=== PATIENT | female | born 1965 | race Caucasian/White ===

== ENCOUNTER 2021-02-17 01:53 | Emergency (ER) | payer BC, OTHER ==
[~2021-02-17] VITALS: Ht 157.5 cm; Wt 63.0 kg
--- NOTE | 2021-02-17 03:20 | NUR ---
MANAGER ADMINISTRATION: PT. TO ROOM FROM LOBBY AT THIS TIME.
[2021-02-17] MEDS ORDERED: ACETAMINOPHEN 325 MG TABLET PO ONE (04:00)
[2021-02-17] MEDS ORDERED: ONDANSETRON 2MG/ML, 2ML IVPush ONE (04:00)
[2021-02-17] MEDS ORDERED: SODIUM CHLORIDE 0.9% 1,000ML IVBOLUS ONE (04:00)
[2021-02-17] MEDS ORDERED: SODIUM CHLORIDE FLUSH 10ML SYR IVF ONE (04:00)
[2021-02-17] MEDS ORDERED: KETOROLAC 30 MG/1 ML IVPush ONE (04:00)
[2021-02-17] MEDS ORDERED: NS + 20MEQ KCL 0 ML IV ONE (04:05)
[2021-02-17 04:14] LABS: BASOPHILS % (AUTO) 1 % (0-1); EOSINOPHILS % (AUTO) 1 % (1-7); LYMPHOCYTES % (AUTO) 40 % (22-44); MEAN CORPUSCULAR HEMOGLOBIN 33.5 pg (27.0-34.8); MEAN CORPUSCULAR HGB CONC 34.1 g/dL (32.4-35.8); MEAN PLATELET VOLUME 8.4 fL (7.4-10.4); MONOCYTES % (AUTO) 9 % (2-9); NEUTROPHILS % (AUTO) 50 % (42-75); PLATELET COUNT 210 x10^3/uL (130-400); RED BLOOD COUNT 4.85 x10^6/uL (3.82-5.3); RED CELL DISTRIBUTION WIDTH 12.5 % (9.6-15.2)
[2021-02-17 04:22] LABS: ALANINE AMINOTRANSFERASE 209 U/L (12-78); ALBUMIN 3.4 g/dL (3.4-5.0); ANION GAP 10 mmol/L (5-15); CALCIUM 8.2 mg/dL (8.5-10.1); CHLORIDE 106 mmol/L (98-107)
[2021-02-17] MEDS ORDERED: ONDANSETRON 2MG/ML, 2ML ONE (04:24)
[2021-02-17] MEDS ORDERED: ACETAMINOPHEN 325 MG TABLET ONE (04:24)
[2021-02-17] MEDS ORDERED: KETOROLAC 30 MG/1 ML ONE (04:24)
[2021-02-17 04:25] LABS: ALKALINE PHOSPHATASE 187 U/L (45-117); BILIRUBIN,TOTAL 0.7 mg/dL (0.2-1.0); CREATININE 0.89 mg/dL (0.55-1.02)
[2021-02-17 05:25] VITALS: BP 134/75
== END 2021-02-17 06:07 | disposition home or self-care (01) ==
LOC: ED 06:05
DX: B34.9 Viral infection, unspecified (principal); Z20.822 Contact with and (suspected) exposure to COVID-19; F17.210 Nicotine dependence, cigarettes, uncomplicated; R51.9 Headache, unspecified; R00.1 Bradycardia, unspecified; R74.8 Abnormal levels of other serum enzymes
CPT/HCPCS: 36415; 80053; 85025; 93005; 96361; 96374; 96375; 99284; 99406; J1885; J2405; J7030; U0003; U0005

== ENCOUNTER 2021-02-22 15:21 | Emergency (ER) | payer BC ==
[~2021-02-22] VITALS: Ht 162.6 cm; Wt 62.0 kg
[2021-02-22 16:25] LABS: ALANINE AMINOTRANSFERASE 122 U/L (12-78); ALBUMIN 3.6 g/dL (3.4-5.0); ANION GAP 6 mmol/L (5-15); CALCIUM 8.8 mg/dL (8.5-10.1); CHLORIDE 99 mmol/L (98-107); CREATININE 0.85 mg/dL (0.55-1.02)
[2021-02-22 16:27] LABS: ALKALINE PHOSPHATASE 194 U/L (45-117); BILIRUBIN,TOTAL 0.9 mg/dL (0.2-1.0); TOTAL PROTEIN 7.3 g/dL (6.4-8.2)
[2021-02-22 16:33] LABS: MEAN CORPUSCULAR HEMOGLOBIN 34.1 pg (27.0-34.8); MEAN CORPUSCULAR HGB CONC 34.7 g/dL (32.4-35.8); MEAN PLATELET VOLUME 9.5 fL (7.4-10.4); PLATELET COUNT 151 x10^3/uL (130-400); RED BLOOD COUNT 4.67 x10^6/uL (3.82-5.3); RED CELL DISTRIBUTION WIDTH 12.3 % (9.6-15.2)
[2021-02-22 17:01] LABS: <RBC MORPHOLOGY> NORMAL; LYMPH#(MANUAL) 2.42 x10^3/uL (1-3.4); LYMPHS% (MANUAL) 22 % (22-44); MONOS#(MANUAL) 0.55 x10^3/uL (0.3-2.7); MONOS% (MANUAL) 5 % (2-9); SEG#(MANUAL) 8.03 x10^3/uL (1.8-6.8); SEGS% (MANUAL) 73 % (42-75)
[2021-02-22 17:02] LABS: <PLATELET ESTIMATE> ADEQUATE; <PLT MORPHOLOGY> NORMAL PLT MORPH
--- NOTE | 2021-02-22 18:35 | NUR ---
PT BACK TO ROOM FROM LOBBY
[2021-02-22] MEDS ORDERED: MAALOX/HYOSCYAMINE/LIDOCAINE 45 ML BTL PO ONE (19:00)
[2021-02-22] MEDS ORDERED: ONDANSETRON 2MG/ML, 2ML ONE (19:00)
[2021-02-22] MEDS ORDERED: SODIUM CHLORIDE 0.9% 1,000ML IVBOLUS ONE (19:00)
[2021-02-22] MEDS ORDERED: MORPHINE SULFATE 4 MG/ML, 1ML IVPush PRN (19:00)
[2021-02-22] MEDS ORDERED: ONDANSETRON 2MG/ML, 2ML IVPush ONE (19:00)
[2021-02-22] MEDS ORDERED: SODIUM CHLORIDE FLUSH 10ML SYR IVF ONE (19:00)
[2021-02-22] MEDS ORDERED: SODIUM CHLORIDE 0.9% 1,000 ML IV ONE (19:00)
[2021-02-22] MEDS ORDERED: FAMOTIDINE 20 MG/2 ML IVPush ONE (19:00)
[2021-02-22] MEDS ORDERED: MORPHINE SULFATE 4 MG/ML, 1ML ONE (19:01)
[2021-02-22] MEDS ORDERED: FAMOTIDINE 20 MG/2 ML ONE (19:01)
[2021-02-22] MEDS ORDERED: MAALOX/HYOSCYAMINE/LIDOCAINE 45 ML BTL ONE (19:01)
[2021-02-22 19:05] LABS: MICROSCOPIC INDICATED
--- NOTE | 2021-02-22 19:32 | NUR ---
PT TRANSPORTED TO CT.
[2021-02-22] MEDS ORDERED: OMNIPAQUE 350 MG/ML, 100ML BOTTLE ONE (19:40)
[2021-02-22 20:38] VITALS: BP 134/68
== END 2021-02-22 20:41 | disposition home or self-care (01) ==
LOC: ED 18:52
DX: K29.00 Acute gastritis without bleeding (principal); R10.11 Right upper quadrant pain; R10.84 Generalized abdominal pain; R11.2 Nausea with vomiting, unspecified; R19.7 Diarrhea, unspecified; F17.200 Nicotine dependence, unspecified, uncomplicated
CPT/HCPCS: 36415; 74177; 76700; 80053; 81001; 83690; 85025; 87077; 87086; 87186; 96361; 96374; 96375; 99285; J2270; J2405; J7030; Q9967

== ENCOUNTER 2021-02-27 16:32 | Emergency (ER) | payer BC ==
[~2021-02-27] VITALS: Ht 162.6 cm; Wt 60.4 kg
[2021-02-27 17:29] LABS: ALANINE AMINOTRANSFERASE 91 U/L (12-78); ANION GAP 8 mmol/L (5-15); CHLORIDE 103 mmol/L (98-107)
[2021-02-27 17:34] LABS: ALKALINE PHOSPHATASE 204 U/L (45-117); BILIRUBIN,TOTAL 0.8 mg/dL (0.2-1.0); CREATININE 1.04 mg/dL (0.55-1.02); TOTAL PROTEIN 8.4 g/dL (6.4-8.2)
[2021-02-27 17:38] LABS: BASOPHILS % (AUTO) 0 % (0-1); EOSINOPHILS % (AUTO) 1 % (1-7); LYMPHOCYTES % (AUTO) 28 % (22-44); MEAN CORPUSCULAR HEMOGLOBIN 33.5 pg (27.0-34.8); MEAN CORPUSCULAR HGB CONC 34.1 g/dL (32.4-35.8); MEAN PLATELET VOLUME 8.7 fL (7.4-10.4); MONOCYTES % (AUTO) 10 % (2-9); NEUTROPHILS % (AUTO) 61 % (42-75); PLATELET COUNT 276 x10^3/uL (130-400); RED BLOOD COUNT 5.46 x10^6/uL (3.82-5.3); RED CELL DISTRIBUTION WIDTH 12.5 % (9.6-15.2)
[2021-02-27] MEDS ORDERED: ONDANSETRON 2MG/ML, 2ML ONE (19:58)
[2021-02-27] MEDS ORDERED: MAALOX/HYOSCYAMINE/LIDOCAINE 45 ML BTL ONE (19:58)
[2021-02-27] MEDS ORDERED: MORPHINE SULFATE 4 MG/ML, 1ML ONE (19:58)
[2021-02-27] MEDS ORDERED: MORPHINE SULFATE 4 MG/ML, 1ML IVPush PRN (20:00)
[2021-02-27] MEDS ORDERED: ONDANSETRON 2MG/ML, 2ML IVPush ONE (20:00)
[2021-02-27] MEDS ORDERED: MAALOX/HYOSCYAMINE/LIDOCAINE 45 ML BTL PO ONE (20:00)
[2021-02-27 20:02] LABS: MICROSCOPIC INDICATED
[2021-02-27 21:06] VITALS: BP 110/80
== END 2021-02-27 21:40 | disposition home or self-care (01) ==
LOC: ED 16:45
DX: K29.00 Acute gastritis without bleeding (principal); K80.50 Calculus of bile duct without cholangitis or cholecystitis without obstruction
CPT/HCPCS: 36415; 76700; 80053; 81001; 83690; 84703; 85025; 87086; 93005; 96374; 99285; J2405